=== PATIENT | female | born 1990 | race Caucasian/White ===

== ENCOUNTER 2018-08-02 08:34 | Emergency (ER) | payer SELFPAY ==
[~2018-08-02] VITALS: Ht 167.6 cm; Wt 131.9 kg
[~2018-08-02 08:34] MED LIST: AUGMENTIN500TAB PO; CIPRO500 MG OR; CORTISPORIN OTI10 M2 OT; LEVACET OR; NO HOME MEDS; ONDANSETRON4 MG PO; PREVACID30 M2 PO; TOPAMAX50 M1 PO; TRAMADOL HCL E100 M1 PO
[2018-08-02] MEDS ORDERED: PROZAC10 MG PO (08:45)
[2018-08-02] MEDS ORDERED: THYROID (08:46)
[2018-08-02] MEDS ORDERED: VITAMIN D PO (08:46)
[2018-08-02] MEDS ORDERED: MOTRIN400 MG PO (09:25)
[2018-08-02 09:35] VITALS: BP 141/91
== END 2018-08-02 09:35 | disposition home or self-care (01) | DRG 563 ==
LOC: ED 08:34
DX: S46.912A Strain of unspecified muscle, fascia and tendon at shoulder and upper arm level, left arm, initial encounter (principal); M25.512 Pain in left shoulder

== ENCOUNTER 2021-03-29 14:42 | Emergency (ER) | payer OTHER ==
[~2021-03-29] VITALS: Ht 167.6 cm; Wt 131.0 kg
[~2021-03-29 14:42] MED LIST changes: +MOTRIN400 MG PO; +PROZAC10 MG PO; +THYROID; +VITAMIN D PO
[2021-03-29] MEDS ORDERED: ZPAK PO (18:11)
[2021-03-29] MEDS ORDERED: TAM75CAP PO (18:11)
[2021-03-29] MEDS ORDERED: VENTOLIN HFA IN (18:11)
[2021-03-29 18:56] VITALS: BP 170/80
== END 2021-03-29 18:55 | disposition home or self-care (01) ==
LOC: ED 14:42
DX: U07.1 COVID-19 (principal); J45.901 Unspecified asthma with (acute) exacerbation; J10.1 Influenza due to other identified influenza virus with other respiratory manifestations; E11.9 Type 2 diabetes mellitus without complications; F41.9 Anxiety disorder, unspecified; Z20.818 Contact with and (suspected) exposure to other bacterial communicable diseases

== ENCOUNTER 2021-09-11 20:15 | Emergency (ER) | payer OTHER ==
[2021-09-11] VITALS (11 sets, daily range): BP systolic 117–160; BP diastolic 56–104
[~2021-09-11] VITALS: Ht 167.6 cm; Wt 125.6 kg
[~2021-09-11 20:15] MED LIST changes: +TAM75CAP PO; +VENTOLIN HFA IN; +ZPAK PO
[2021-09-11 21:17] LABS: IMMATURE GRANULOCYTES 0.2 % (0.0-5.0); MEAN CELL VOLUME 86.6 fL CALC (80.0-100.0); MEAN CORPUSCULAR HGB 28.4 pG CALC (26.0-32.0); MEAN CORPUSCULAR HGB CONC 32.8 g/dL CAL (32.0-36.0); NEUT# 5.25 thou/uL (2.00-7.15); RED BLOOD COUNT 4.62 mill/uL (4.20-5.60); RED CELL DISTRI WIDTH 13.2 % (11.5-15.5)
[2021-09-11 21:26] LABS: HEMOGLOBIN 13.1 g/dl (12.0-16.0)
[2021-09-11 21:30] LABS: ANION GAP 13 (6-22 (CALC)); BUN 10 mg/dL (7-17); BUN/CREATININE RATIO 19 (12-20 (CALC)); CARBON DIOXIDE 26 mmol/l (22-30); CHLORIDE 103 mmol/l (95-108); CPK 75 u/l (30-165); CREATININE 0.5 mg/dL (0.5-1.0); GFR FOR AFR.AMER. > 60 ML/MIN (>=60 (CALC)); GFR OTHER RACES > 60 ML/MIN (>=60 (CALC)); POTASSIUM 4.1 mmol/l (3.5-5.1); SGOT/AST 29 u/l (14-36); SODIUM 137 mmol/l (137-146)
[2021-09-11 21:31] LABS: ALBUMIN 3.8 g/dL (3.2-5.0); ALKALINE PHOSPHATASE 126 u/l (38-126); BILIRUBIN, TOTAL 0.1 mg/dL (0.0-1.4); TOTAL PROTEIN 7.2 g/dL (6.3-8.2)
[2021-09-11 21:35] LABS: ACT PARTIAL THROMBO TIME 25.7 SECONDS (20.0-32.5); INTERNATIONAL NORMALIZED RATIO 0.9 RATIO (0.7-1.3); PROTHROMBIN TIME 9.7 SECONDS (9.0-12.5)
[2021-09-11 21:48] LABS: D-DIMER 0.55 mg/L (0.19-0.60)
[2021-09-11] MEDS ORDERED: VOLTAREN - GENE75 MG PO (22:29)
== END 2021-09-11 23:10 | disposition home or self-care (01) ==
LOC: ED 20:15
PROVIDERS: Family Medicine
DX: M25.572 Pain in left ankle and joints of left foot (principal); M25.562 Pain in left knee; E11.65 Type 2 diabetes mellitus with hyperglycemia; F41.9 Anxiety disorder, unspecified; F32.A Depression, unspecified; E03.9 Hypothyroidism, unspecified; M06.9 Rheumatoid arthritis, unspecified

== ENCOUNTER 2022-01-12 10:09 | Emergency (ER) | payer OTHER ==
[~2022-01-12] VITALS: Ht 167.6 cm; Wt 116.0 kg
[~2022-01-12 10:09] MED LIST changes: +VOLTAREN - GENE75 MG PO
[2022-01-12 11:23] LABS: HEMATOCRIT 44.3 % (37.0-47.0); IMMATURE GRANULOCYTES 0.3 % (0.0-5.0); MEAN CELL VOLUME 85.7 fL CALC (80.0-100.0); MEAN CORPUSCULAR HGB 27.1 pG CALC (26.0-32.0); MEAN CORPUSCULAR HGB CONC 31.6 g/dL CAL (32.0-36.0); NEUT# 5.55 thou/uL (2.00-7.15); RED BLOOD COUNT 5.17 mill/uL (4.20-5.60); RED CELL DISTRI WIDTH 13.4 % (11.5-15.5)
[2022-01-12 11:44] LABS: ALBUMIN 4.5 g/dL (3.2-5.0); ALKALINE PHOSPHATASE 117 u/l (38-126); ANION GAP 18 (6-22 (CALC)); BILIRUBIN, TOTAL 0.2 mg/dL (0.0-1.4); BUN 11 mg/dL (7-17); BUN/CREATININE RATIO 20 (12-20 (CALC)); CARBON DIOXIDE 23 mmol/l (22-30); CHLORIDE 105 mmol/l (95-108); CREATININE 0.5 mg/dL (0.5-1.0); GFR FOR AFR.AMER. > 60 ML/MIN (>=60 (CALC)); GFR OTHER RACES > 60 ML/MIN (>=60 (CALC)); SGOT/AST 23 u/l (14-36); SODIUM 140 mmol/l (137-146); TOTAL PROTEIN 8.3 g/dL (6.3-8.2)
[2022-01-12 14:00] LABS: URINE BILIRUBIN - DIPSTICK NEGATIVE (NEGATIVE); URINE BLOOD DIPSTICK NEGATIVE (NEGATIVE); URINE COLOR YELLOW; URINE GLUCOSE - DIPSTICK >=1000 mg/dL (NEGATIVE); URINE KETONE NEGATIVE (NEGATIVE); URINE LEUK ESTERASE NEGATIVE (NEGATIVE); URINE PROTEIN - DIPSTICK NEGATIVE (NEG-TRACE); URINE SPECIFIC GRAVITY 1.025; URINE UROBILINOGEN - DIPSTICK 0.2 E.U./dL (0.2)
[2022-01-12 14:01] LABS: URINE NITRITE - DIPSTICK NEGATIVE (Negative)
[2022-01-12] MEDS ORDERED: DICYCLOMINE10 MG PO (14:45)
[2022-01-12 14:51] VITALS: BP 129/76
== END 2022-01-12 14:56 | disposition home or self-care (01) ==
LOC: ED 10:09
PROVIDERS: Family Medicine
DX: R19.7 Diarrhea, unspecified (principal); M06.9 Rheumatoid arthritis, unspecified; E11.9 Type 2 diabetes mellitus without complications; F41.9 Anxiety disorder, unspecified; F32.A Depression, unspecified; E03.9 Hypothyroidism, unspecified

== ENCOUNTER 2022-03-17 16:32 | Emergency (ER) | payer OTHER ==
[~2022-03-17] VITALS: Ht 167.6 cm; Wt 126.0 kg
[~2022-03-17 16:32] MED LIST changes: +DICYCLOMINE10 MG PO
[2022-03-17 21:07] VITALS: BP 153/91
[2022-03-17 21:17] VITALS: BP 115/73
[2022-03-17 21:31] VITALS: BP 117/69
== END 2022-03-17 23:16 | disposition home or self-care (01) ==
LOC: ED 16:32
DX: S80.02XA Contusion of left knee, initial encounter (principal); E11.65 Type 2 diabetes mellitus with hyperglycemia; M06.9 Rheumatoid arthritis, unspecified; F41.9 Anxiety disorder, unspecified; F32.A Depression, unspecified; E03.9 Hypothyroidism, unspecified; F17.200 Nicotine dependence, unspecified, uncomplicated; W01.0XXA Fall on same level from slipping, tripping and stumbling without subsequent striking against object, initial encounter; Y92.009 Unspecified place in unspecified non-institutional (private) residence as the place of occurrence of the external cause; Z91.81 History of falling

== ENCOUNTER 2022-04-29 08:32 | Emergency (ER) | payer OTHER ==
[~2022-04-29] VITALS: Ht 167.6 cm; Wt 127.0 kg
[2022-04-29] MEDS ORDERED: TAM75CAP PO (10:06)
[2022-04-29] MEDS ORDERED: MOTRIN800 MG PO (10:06)
[2022-04-29 10:25] VITALS: BP 111/66
== END 2022-04-29 10:26 | disposition home or self-care (01) ==
LOC: ED 08:32
DX: J10.1 Influenza due to other identified influenza virus with other respiratory manifestations (principal); E11.9 Type 2 diabetes mellitus without complications; E03.9 Hypothyroidism, unspecified; M06.9 Rheumatoid arthritis, unspecified; F41.9 Anxiety disorder, unspecified; F32.A Depression, unspecified; Z20.822 Contact with and (suspected) exposure to COVID-19

== ENCOUNTER 2022-05-07 15:30 | Emergency (ER) | payer OTHER ==
[2022-05-07] VITALS (8 sets, daily range): BP systolic 91–137; BP diastolic 52–95
[~2022-05-07] VITALS: Ht 167.6 cm; Wt 127.0 kg
[~2022-05-07 15:30] MED LIST changes: +MOTRIN800 MG PO
== END 2022-05-07 20:21 | disposition home or self-care (01) ==
LOC: ED 15:30
DX: J02.9 Acute pharyngitis, unspecified (principal); E11.9 Type 2 diabetes mellitus without complications; E03.9 Hypothyroidism, unspecified; M06.9 Rheumatoid arthritis, unspecified; F41.9 Anxiety disorder, unspecified; F32.A Depression, unspecified; F17.200 Nicotine dependence, unspecified, uncomplicated; Z20.822 Contact with and (suspected) exposure to COVID-19

== ENCOUNTER 2022-08-09 22:34 | Emergency (ER) | payer OTHER ==
[~2022-08-09] VITALS: Ht 167.6 cm; Wt 94.0 kg
[2022-08-09 22:50] VITALS: BP 128/72
[2022-08-09 23:05] VITALS: BP 125/69
[2022-08-09 23:26] LABS: BASO% 0.4 % (0-3); EOS% 1.5 % (0-8); HEMATOCRIT 36.4 % (37.0-47.0); HEMOGLOBIN 11.4 g/dl (12.0-16.0); IMMATURE GRANULOCYTES 0.2 % (0.0-5.0); LYMPH% 37.3 % (15-41); MEAN CELL VOLUME 87.1 fL CALC (80.0-100.0); MEAN CORPUSCULAR HGB 27.3 pG CALC (26.0-32.0); MEAN CORPUSCULAR HGB CONC 31.3 g/dL CAL (32.0-36.0); MONO% 6.3 % (2-13); NEUT# 5.21 thou/uL (2.00-7.15); NEUT% 54.3 % (42-76); RED BLOOD COUNT 4.18 mill/uL (4.20-5.60)
[2022-08-09 23:38] LABS: ALBUMIN 3.9 g/dL (3.2-5.0); ALKALINE PHOSPHATASE 102 u/l (38-126); ANION GAP 10 (6-22 (CALC)); BILIRUBIN, TOTAL 0.1 mg/dL (0.02-1.3); BUN 13 mg/dL (7-17); BUN/CREATININE RATIO 22 (12-20 (CALC)); CARBON DIOXIDE 27 mmol/l (22-30); CHLORIDE 104 mmol/l (95-108); CPK 78 u/l (30-135); CREATININE 0.6 mg/dL (0.5-1.0); GFR FOR AFR.AMER. > 60 ML/MIN (>=60 (CALC)); GFR OTHER RACES > 60 ML/MIN (>=60 (CALC)); MAGNESIUM 1.9 mg/dL (1.6-2.3); POTASSIUM 4.2 mmol/l (3.5-5.1); SGOT/AST 27 u/l (14-36); SODIUM 136 mmol/l (137-146)
[2022-08-09 23:39] VITALS: BP 123/75
[2022-08-09 23:45] LABS: URINE BILIRUBIN - DIPSTICK NEGATIVE (NEGATIVE); URINE BLOOD DIPSTICK SMALL (NEGATIVE); URINE COLOR YELLOW; URINE GLUCOSE - DIPSTICK 500 mg/dL (NEGATIVE); URINE KETONE NEGATIVE (NEGATIVE); URINE PH 6.5 (4.5-8.0); URINE PROTEIN - DIPSTICK NEGATIVE (NEG-TRACE); URINE SPECIFIC GRAVITY 1.025; URINE UROBILINOGEN - DIPSTICK 0.2 E.U./dL (0.2)
[2022-08-09 23:46] VITALS: BP 124/79
[2022-08-09 23:48] LABS: URINE NITRITE - DIPSTICK NEGATIVE (Negative)
[2022-08-09 23:50] LABS: URINE LEUK ESTERASE NEGATIVE (NEGATIVE)
[2022-08-09 23:54] LABS: URINE BACTERIA MODERATE hpf; URINE EPITHELIAL CELLS MODERATE EPI/hpf (0-FEW)
[2022-08-10 00:08] LABS: TSH, 3RD GENERATION 4.89 uIU/mL (0.47 - 4.68)
[2022-08-10 00:40] VITALS: BP 124/79
== END 2022-08-10 00:43 | disposition home or self-care (01) ==
LOC: ED 22:34
PROVIDERS: Family Medicine
DX: R25.2 Cramp and spasm (principal); M79.10 Myalgia, unspecified site; E11.65 Type 2 diabetes mellitus with hyperglycemia; E03.9 Hypothyroidism, unspecified; M06.9 Rheumatoid arthritis, unspecified; F41.9 Anxiety disorder, unspecified; F32.A Depression, unspecified

== ENCOUNTER 2023-04-01 09:46 | Emergency (ER) | payer SELFPAY ==
[~2023-04-01] VITALS: Ht 167.6 cm; Wt 134.4 kg
[~2023-04-01 09:46] MED LIST changes: +REGLAN10 MG PO
[2023-04-01] MEDS ORDERED: PREDNISONE50 MG PO (10:57)
[2023-04-01 10:59] VITALS: BP 133/91
== END 2023-04-01 11:10 | disposition home or self-care (01) | DRG 153 ==
LOC: ED 09:46
DX: J11.1 Influenza due to unidentified influenza virus with other respiratory manifestations (principal); M06.9 Rheumatoid arthritis, unspecified; E66.01 Morbid (severe) obesity due to excess calories; E11.9 Type 2 diabetes mellitus without complications; F41.9 Anxiety disorder, unspecified; F32.A Depression, unspecified; E03.9 Hypothyroidism, unspecified; Z20.822 Contact with and (suspected) exposure to COVID-19

== ENCOUNTER 2023-04-17 09:38 | Emergency (ER) | payer SELFPAY ==
[2023-04-17] VITALS (10 sets, daily range): BP systolic 119–158; BP diastolic 71–109
[~2023-04-17] VITALS: Ht 167.6 cm; Wt 132.0 kg
[~2023-04-17 09:38] MED LIST changes: +PREDNISONE50 MG PO
[2023-04-17] MEDS ORDERED: NAPROXEN500 MG PO (12:04)
== END 2023-04-17 12:29 | disposition home or self-care (01) | DRG 563 ==
LOC: ED 09:38
PROC: 2W3CX1Z Immobilization of Right Lower Arm using Splint (ICD-10-PCS; principal; 2023-04-17)
DX: S52.501A Unspecified fracture of the lower end of right radius, initial encounter for closed fracture (principal); E11.9 Type 2 diabetes mellitus without complications; E03.9 Hypothyroidism, unspecified; M06.9 Rheumatoid arthritis, unspecified; J45.909 Unspecified asthma, uncomplicated; F41.9 Anxiety disorder, unspecified; F32.A Depression, unspecified; E66.9 Obesity, unspecified; W19.XXXA Unspecified fall, initial encounter; Y92.009 Unspecified place in unspecified non-institutional (private) residence as the place of occurrence of the external cause; Z72.0 Tobacco use

== ENCOUNTER 2023-11-12 14:17 | Emergency (ER) | payer OTHER ==
[~2023-11-12] VITALS: Ht 170.2 cm; Wt 127.0 kg
[~2023-11-12 14:17] MED LIST changes: +CELEBREX100 M1 PO; +DICLOFENAC SODI75 MG PO; +DIFLUCAN100 M1 PO; +ESCITALOPRAM OXA5 MG PO; +JANUVIA25 MG PO; +JARDIANCE10 MG; +LEVOTHYROXIN50 MC1 PO; +LISINOPRIL2.5 MG PO; +METFORMIN500 M2 PO; +NAPROXEN500 MG PO; +PERCOCET 5/325M1 TAB PO
[2023-11-12 14:57] VITALS: BP 147/91
[2023-11-12 15:00] VITALS: BP 143/88
[2023-11-12 15:15] VITALS: BP 130/83
[2023-11-12 15:31] VITALS: BP 112/65
[2023-11-12 16:01] VITALS: BP 112/65
== END 2023-11-12 15:50 | disposition home or self-care (01) ==
LOC: ED 14:17
DX: R19.7 Diarrhea, unspecified (principal); E11.9 Type 2 diabetes mellitus without complications; F41.9 Anxiety disorder, unspecified; F32.A Depression, unspecified; Z79.84 Long term (current) use of oral hypoglycemic drugs; Z20.822 Contact with and (suspected) exposure to COVID-19

== ENCOUNTER 2023-12-09 17:37 | Emergency (ER) | payer OTHER ==
[~2023-12-09] VITALS: Ht 170.2 cm; Wt 108.8 kg
[2023-12-09 17:45] VITALS: BP 143/101
[2023-12-09 18:00] VITALS: BP 138/93
[2023-12-09 18:15] VITALS: BP 144/94
[2023-12-09] MEDS ORDERED: DICLOFENAC SODIUM2 % TD (18:15)
[2023-12-09 18:28] VITALS: BP 144/94
== END 2023-12-09 18:28 | disposition home or self-care (01) ==
LOC: ED 17:37
DX: M25.532 Pain in left wrist (principal); E11.9 Type 2 diabetes mellitus without complications; M06.9 Rheumatoid arthritis, unspecified; F41.9 Anxiety disorder, unspecified; F32.A Depression, unspecified; Z79.84 Long term (current) use of oral hypoglycemic drugs

== ENCOUNTER 2024-03-18 16:46 | Emergency (ER) | payer OTHER ==
[~2024-03-18] VITALS: Ht 170.2 cm; Wt 127.0 kg
[2024-03-18] VITALS (8 sets, daily range): BP systolic 86–153; BP diastolic 58–100
[~2024-03-18 16:46] MED LIST changes: +DICLOFENAC SODIUM2 % TD
[2024-03-18] MEDS ORDERED: KETOROLAC TROMETHAMINE 30 MG/ML SDV IM ONE (17:05)
[2024-03-18] MEDS ORDERED: PREDNISONE50 MG PO (18:03)
== END 2024-03-18 18:21 | disposition home or self-care (01) ==
LOC: ED 16:46
DX: B34.9 Viral infection, unspecified (principal); M25.531 Pain in right wrist; E11.9 Type 2 diabetes mellitus without complications; M06.9 Rheumatoid arthritis, unspecified; F41.9 Anxiety disorder, unspecified; F32.A Depression, unspecified; Z79.84 Long term (current) use of oral hypoglycemic drugs; Z20.822 Contact with and (suspected) exposure to COVID-19